=== PATIENT | female | born 2000 | race Hispanic/Latino ===

== ENCOUNTER 2022-05-12 11:02 | Emergency (ER) | payer OTHER ==
--- OUTSIDE RECORDS SUMMARY | 2022-05-12 11:05 | XMS REPORT | Continuity of Care Document ---
:2000 Author Organization [facility] t Address [address] [place] [address] Care Team Providers Name Role Phone Kassi Trejo Attending Clinician Unavailable Sudireddy_R Attending Clinician Unavailable DANIEL DESAI Attending Clinician Unavailable Vasquez Attending Clinician Unavailable Adejumo_K Attending Clinician Unavailable Sudireddy_R Admitting Clinician Unavailable Vasquez Admitting Clinician Unavailable Adejumo_K Admitting Clinician Unavailable Payers Payer Name Policy Type Policy Number Effective Date Expiration Date [place] - [id number] [place] [address] [place] [place] [facility] [id number] 2016 00:00:00 Problems This patient has no known problems. Allergies, Adverse Reactions, Alerts Allergy Allergy Status Severity Reaction(s) Onset Inactive Treating Comm ents Source Name Type Date Date Clinician NO KNOWN Drug Active Univers ALLERGIE Class ity of [facility] Social History Smoking Status Start Date Stop Date Source Never Smoker [facility] Family P ractice Medications Ordered Filled Start Stop Current Ordering Indication Dosage Frequency Signature Comments Components Source Medication Medication Date Date Medication? Clinician (SIG) Name Name hydroxyzine hydroxyzine No 1 Q6H hydroxyzin [facility] HCl 50 mg HCl 50 mg e HCl 50 F amily tablet Take tablet Take mg tablet Practic 1 tablet 1 tablet Take 1 e every 6 every 6 tablet hours by hours by every 6 oral route oral route hours by as needed. as needed. oral route as needed. Immunizations Ordered Immunization Filled Immunization Date Status Commen ts Source Name Name influenza, influenza, 2020-10-[address] [facility] injectable, injectable, 00:00:00 Practice quadrivalent quadrivalent Vital Signs Vital Name Observation Time Observation Value Comments Source BP Diastolic 2020-11-10 00:00:00 71 mm[Hg] [facility] Height 2020-11-10 00:00:00 63 [in_i] [facility] BMI (Body Mass 2020-11-10 00:00:00 26.7 kg/m2 [facility] Family Index) Practice BP Systolic 2020-11-10 00:00:00 112 mm[Hg] [facility] Body Weight 2020-11-10 00:00:00 151 [lb_av] [facility] Procedures This patient has no known procedures. Plan of Care Planned Activity Planned Date Details Comments Source Instructions [facility] Encounters Start End Encounter Admission Attending Care Care Encounter Source Date/Time Date/Time Type Type Clinicians Facility Department ID 2021-11-04 Outpatient Kassi Trejo STLMLC STLMLC [id number] Common 14:08:51 [id number] [facility] 2021-11-04 Outpatient Kassi Trejo STLMLC STLMLC [id number] 2 Common 13:10:33 [id number] [facility] 2022-03-25 2022-03-25 ambulatory STLMLC STLMLC [id number] Common 00:00:00 00:00:00 [facility] 2021-08-17 2021-08-17 ambulatory STLMLC STLMLC [id number] Common 00:00:00 00:00:00 [facility] 2021-04-28 2021-04-28 Outpatient Sudireddy_R VFP VFP [id number] [facility] 06:51:00 06:51:00 [id number] Family Practic e 2021-03-12 2021-03-12 Outpatient STLMLC STLMLC [id number] Common 00:00:00 00:00:00 [facility] 2021-03-02 2021-03-02 Outpatient Genevieve DSEAI [facility] [id number] Univers 11:20:00 11:20:00 DANIEL tapia [facility] 2021-02-09 2021-02-09 Outpatient [facility] [id number] Univers 11:20:00 11:20:00 [id number] [facility] 2021-02-09 2021-02-09 Outpatient [facility] [id number] Univers 11:20:00 11:20:00 [facility] 2020-11-13 2020-11-13 Outpatient Ike_M_ VFP VFP [id number] [facility] 09:56:00 09:56:00 [facility] [id number] Family Practic e 2020-11-10 2020-11-10 Outpatient Adejumo_K VFP VFP [id number] [facility] 10:37:00 10:37:00 [id number] Family Practic e 2020-11-10 2020-11-10 Porchae B VFP [place] - [id number] [facility] 00:00:00 00:00:00 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 2020-10-30 2020-10-30 Outpatient Ike_Meli_ VFP VFP [id number] [facility] 06:01:00 06:01:00 [facility] [id number] Family Practic e 2020-10-30 2020-10-30 Outpatient Adejumo_K VFP VFP [id number] [place] 06:01:00 06:01:00 [id number] Family Practic e Results This patient has no known results.
[2022-05-12 11:55] LABS: Absolute Lymphocytes (CBC) 2.2 K/uL (0.7-4.9); Hematocrit 37.8 % (36.0-45.0); Lymphocytes % 28.8 % (15.3-44.8); MCV 81.8 fL (80-100); MPV 7.4 fL (7.6-11.3); RBC Red Blood Cell Count 4.62 M/uL (3.86-4.86)
--- NOTE | 2022-05-12 12:05 | RAD REPORT ---
EXAM DESCRIPTION: Aba Single View05/12/2022 11:54 am CLINICAL HISTORY: Chest pain COMPARISON: none FINDINGS: The lungs appear clear of acute infiltrate. The heart is normal size IMPRESSION: No acute abnormalities displayed
[2022-05-12 12:19] LABS: Potassium 3.5 mmol/L (3.5-5.1); Troponin High Sensitivity 5.7 pg/mL (<58.9)
--- NOTE | 2022-05-12 14:23 | EDPHYS ---
Physician Documentation [facility] Name: Lori Casillas Age: 21 yrs Sex: Female : 2000 Arrival Date: 05/12/2022 Time: 11:07 Bed 20 Private MD: ROXIE Physician Carlos Hand HPI: 05/12 11:22 This 21 yrs old Female presents to ER via Ambulatory with complaints of Chest jmm Pain. 11:22 The patient or guardian reports chest pain that is located primarily in the substernal m area. The pain does not radiate. Associated signs and symptoms: Pertinent positives: shortness of breath. The chest pain is described as aching, a pressure, sharp. Duration: The patient or guardian reports a single episode, that is still ongoing. Modifying factors: The symptoms are alleviated by nothing. the symptoms are aggravated by deep breath. The patient has not experienced similar symptoms in the past. 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 - Social history:: Smoking status: Patient denies any tobacco usage or history of. ROS: 11:22 Constitutional: Negative for fever, chills, and weight loss. jmm 11:22 Constitutional: Positive for 11:22 Cardiovascular: Positive for chest pain. 11:22 Respiratory: Positive for shortness of breath. 11:22 All other systems are negative. Exam: 11:22 Constitutional: This is a well developed, well nourished patient who is awake, alert, jmm and in no acute distress. Head/Face: atraumatic. Eyes: EOMI, no conjunctival erythema appreciated ENT: Moist Mucus Membranes Neck: Trachea midline, Supple Chest/axilla: Normal chest wall appearance and motion. Cardiovascular: Regular rate and rhythm. No edema appreciated Respiratory: Normal respirations, no respiratory distress appreciated 11:22 Back: Normal ROM Skin: General appearance color normal MS/ Extremity: Moves all extremities, no obvious deformities appreciated, no edema noted to the lower extremities Neuro: Awake and alert Psych: Behavior is normal, Mood is normal, Patient is cooperative and pleasant 11:22 Abdomen/GI: Inspection: abdomen appears normal, Bowel sounds: normal, Palpation: soft, nontender, in all quadrants. 14:21 ECG was reviewed by the Attending Physician. [facility] Vital Signs: 11:14 BP 150 / 86; Pulse 94; Resp 18; Temp 99.2(TE); Pulse Ox 100% on R/A; Weight 65.77 kg tw2 (R); Height 5 ft. 3 in. (160.02 cm); Pain 4/10; 12:15 BP 119 / 88; Pulse 89; Resp 18; Pulse Ox 100% on R/A; Pain 0/10; eh3 13:15 BP 120 / 67; Pulse 82; Resp 18; Pulse Ox 100% on R/A; Pain 0/10; eh3 14:15 BP 112 / 67; Pulse 86; Resp 18; Pulse Ox 100% on R/A; Pain 0/10; eh3 11:14 Body Mass Index 25.69 (65.77 kg, 160.02 cm) tw2 MDM: 11:22 Patient medically screened. [facility] 14:21 Data reviewed: vital signs, nurses notes. Counseling: I had a detailed discussion with [facility] the patient and/or guardian regarding: the historical points, exam findings, and any diagnostic results supporting the discharge/admit diagnosis, lab results, radiology results, the need for outpatient follow up, to return to the emergency department if symptoms worsen or persist or if there are any questions or concerns that arise at home. 05/12 11:35 Order name: Basic Metabolic Panel; Complete Time: 12:23 [facility] 05/12 11:35 Order name: CBC with Diff; Complete Time: 12:02 [facility] 05/12 11:35 Order name: Troponin HS; Complete Time: 12:23 [facility] 05/12 11:35 Order name: XRAY Chest (1 view); Complete Time: 12:08 [facility] 05/12 11:35 Order name: D-Dimer; Complete Time: 12:02 [facility] 05/12 12:03 Order name: SARS-COV-2 RT PCR (Document "Date of Onset" if Symptomatic); Complete Time: [facility] 14:05/12 11:35 Order name: EKG; Complete Time: 11:35 [facility] 05/12 11:35 Order name: Cardiac monitoring; Complete Time: 12:06 [facility] 05/12 11:35 Order name: EKG - Nurse/Tech; Complete Time: 11:40 [facility] 05/12 11:35 Order name: IV Saline Lock; Complete Time: 11:49 [facility] 05/12 11:35 Order name: Labs collected and sent; Complete Time: 11:49 [facility] 05/12 11:35 Order name: O2 Per Protocol; Complete Time: 11:57 [facility] 05/12 11:35 Order name: O2 Sat Monitoring; Complete Time: 11:57 [facility] EC:21 Rate is 93 beats/min. Rhythm is regular. Right axis deviation noted. NE interval is jmm normal. QRS interval is normal. QT interval is normal. No Q waves. T waves are Normal. No ST changes noted. Reviewed by me. Administered Medications: 14:45 Drug: Ativan (LORazepam) 1 mg Route: IVP; Site: right antecubital; [facility] 14:55 Follow up: Response: No adverse reaction 3 Disposition Summary: 05/12/22 14:49 Discharge Ordered Location: Home(05/12/22 14:49) [facility] Condition: Stable(05/12/22 14:49) jm Diagnosis - Chest pain, unspecified(05/12/22 14:49) [facility] Followup: [facility] - With: Private Physician - When: 2 - 3 days - Reason: Recheck today's complaints, Continuance of care, Re-evaluation by your physician Discharge Instructions: - Discharge Summary Sheet jmm - Nonspecific Chest Pain, Adult jmm Forms: - Medication Reconciliation Form jm - Thank You Letter jmm - Antibiotic Education jmm - Prescription Opioid Use m - Work release form 3 Signatures: Dispatcher [employer] EDDanial Chiang PA PA jmm Wise, Tara, RN RN tw2 Tonja Pace 3 Corrections: (The following items were deleted from the chart) 14:23 14:22 Home jmm jmm 14:23 14:22 Stable jmm jmm 14:23 14:22 Chest pain, unspecified jmm jmm
--- NOTE | 2022-05-12 14:23 | ER ---
Nurse's Notes [facility] Name: Lori Casillas Age: 21 yrs Sex: Female : 2000 Arrival Date: 05/12/2022 Time: 11:07 Bed 20 Private MD: Diagnosis: Chest pain, unspecified Presentation: 05/12 11:09 Chief complaint: Patient states: last night i drank an energy drink and i went to work tw2 out. i also drank coffee after the gym as well. then i got home and started feeling really bad chest pain and my heart started beating really fast. my mom gave me an aspirin and it helped. then this morning i started freaking out and it started hurting again. Coronavirus screen: At this time, the client does not indicate any symptoms associated with coronavirus-19. Ebola Screen: Patient denies travel to an Ebola-affected area in the 21 days before illness onset. Initial Sepsis Screen: Does the patient meet any 2 criteria? HR > 90 bpm. No. Patient's initial sepsis screen is negative. Does the patient have a suspected source of infection? No. Patient's initial sepsis screen is negative. Risk Assessment: Do you want to hurt yourself or someone else? Patient reports no desire to harm self or others. Onset of symptoms was May 12, 2022. 11:09 Method Of Arrival: Ambulatory tw2 11:09 Acuity: ANTONIO 3 tw2 11:16 Chief complaint: pts aunt states "she did call her pcp and they told her just to come tw2 here to get checked out.". Triage Assessment: 11:12 General: Appears in no apparent distress. slender, Behavior is cooperative, appropriate tw2 for age, anxious. Pain: Complains of pain in mid-sternal area Pain does not radiate. Neuro: Level of Consciousness is awake, alert, obeys commands, Oriented to person, place, time, situation. Cardiovascular: Reports chest pain. Respiratory: Airway is patent Respiratory effort is even, unlabored, Respiratory pattern is regular, symmetrical. 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 - Social history:: Smoking status: Patient denies any tobacco usage or history of. Screenin:14 Abuse screen: Denies threats or abuse. Nutritional screening: No deficits noted. tw2 Tuberculosis screening: No symptoms or risk factors identified. Fall Risk None identified. Assessment: 11:14 Pain: Pain began 1 day ago. tw2 11:19 Reassessment: provider in triage at this time. tw2 12:17 Reassessment: See triage assessment. Pain: Denies pain. Neuro: Level of Consciousness eh3 is awake, alert, obeys commands, Oriented to person, place, time, situation. Cardiovascular: Capillary refill < 3 seconds Patient's skin is warm and dry. Respiratory: Airway is patent Respiratory effort is even, unlabored. Vital Signs: 11:14 BP 150 / 86; Pulse 94; Resp 18; Temp 99.2(TE); Pulse Ox 100% on R/A; Weight 65.77 kg tw2 (R); Height 5 ft. 3 in. (160.02 cm); Pain 4/10; 12:15 BP 119 / 88; Pulse 89; Resp 18; Pulse Ox 100% on R/A; Pain 0/10; eh3 13:15 BP 120 / 67; Pulse 82; Resp 18; Pulse Ox 100% on R/A; Pain 0/10; eh3 14:15 BP 112 / 67; Pulse 86; Resp 18; Pulse Ox 100% on R/A; Pain 0/10; eh3 11:14 Body Mass Index 25.69 (65.77 kg, 160.02 cm) tw2 ED Course: 11:07 Patient arrived in ED. rg4 11:07 Dainal Nelson PA is PHCP. [facility] 11:07 Carlos Hand MD is Attending Physician. jmm 11:09 Arm band placed on. tw2 11:11 Triage completed. tw2 11:14 Patient maintains SpO2 saturation greater than 95% on room air. tw2 11:17 EKG completed in triage. Results shown to MD. tw2 11:49 D-Dimer Sent. mb7 11:49 Basic Metabolic Panel Sent. mb7 11:49 CBC with Diff Sent. mb7 11:49 Troponin HS Sent. [facility] 11:49 EKG done, by ED staff, reviewed by Danial MARTINEZ. Inserted saline lock: 20 gauge in [facility] right antecubital area, using aseptic technique. Blood collected. 11:55 XRAY Chest (1 view) In Process Unspecified. EDMS 12:16 SARS-COV-2 RT PCR (Document "Date of Onset" if Symptomatic) Sent. 3 12:16 Basic Metabolic Panel Sent. 3 12:16 Troponin HS Sent. 3 12:17 Patient has correct armband on for positive identification. Bed in low position. Call [facility] light in reach. Side rails up X2. Adult w/ patient. Client placed on continuous cardiac and pulse oximetry monitoring. NIBP monitoring applied. Door closed. Noise minimized. Lights dimmed. Pillow given. PO fluids given. Verbal reassurance given. 12:17 No provider procedures requiring assistance completed. 3 12:52 Tonja Pace is Primary Nurse. 3 14:59 IV discontinued, intact, bleeding controlled, No redness/swelling at site. Pressure 3 dressing applied. Administered Medications: 14:45 Drug: Ativan (LORazepam) 1 mg Route: IVP; Site: right antecubital; 3 14:55 Follow up: Response: No adverse reaction 3 Medication: 11:19 VIS not applicable for this client. tw2 Outcome: 14:22 Discharge ordered by . [facility] 14:49 Discharge ordered by MD. [facility] 15:06 Discharged to home ambulatory, with family. 3 15:06 Condition: stable 15:06 Discharge instructions given to patient, family, Instructed on discharge instructions, follow up and referral plans. Demonstrated understanding of instructions, follow-up care. 15:06 Patient left the ED. 3 Signatures: Dispatcher [employer] EDMS Danial Nelson PA PA jmm Wise, Tara, RN RN tw2 Zaria Guzman [facility] Uma Pedersen [facility] Tonja Pace 3
[2022-05-12] MEDS ORDERED: LORazepam 2 MG/ML VIAL ONE (14:38)
[2022-05-12 15:31] VITALS: TEMP 99.2; O2SAT 100
[2022-05-12 15:46] VITALS: BP 112/67
--- NOTE | 2022-05-13 10:33 | EKG ---
Test Date: 2022-05-12 Test Time: 11:14:15 Dietician: ABDOUL MEASUREMENT RESULTS: Intervals: Rate: 93 KS: 124 QRSD: 78 QT: 326 QTc: 405 [place]: P: 58 KS: 124 QRS: 94 T: 16 INTERPRETIVE STATEMENTS: Normal sinus rhythm Rightward axis Borderline ECG No previous ECG available for comparison Electronically Signed On 05-13-22 10:31:27 CDT by Amandeep Aponte
== END 2022-05-12 15:06 | disposition home or self-care (01) ==
LOC: ER 11:02
DX: R07.89 Other chest pain (principal); Z20.822 Contact with and (suspected) exposure to COVID-19; Z88.1 Allergy status to other antibiotic agents
CPT/HCPCS: 85025; 80048; 36415; 85379; 84484; 71045; U0003; 93005